=== PATIENT | male | born 1965 | race African-American/Black ===

== ENCOUNTER 2018-09-02 11:33 | Outpatient (CLI) | payer BC ==
--- NOTE | 2018-09-02 13:19 | RAD ---
RADIOGRAPH RIGHT KNEE 4 VIEWS: 09/02/18 HISTORY: 52-year-old male with right knee pain. FINDINGS: Soft tissue edema anteriorly with possible joint effusion. No fracture or dislocation. Joint spaces a re maintained without erosions or significant osteophytes. No periostitis, permeative lesion, osteoly tic lesion, osteoblastic lesion, or fracture. IMPRESSION: 1. No osseous abnormality. 2. Anterior soft tissue edema. POS: C
== END 2018-09-02 11:34 | disposition home or self-care (01) ==
LOC: BURRAD 11:33
PROVIDERS: ATTEND Nurse Practitioner Family
DX: M25.561 Pain in right knee (principal); M1A.9XX0 Chronic gout, unspecified, without tophus (tophi); R60.0 Localized edema
CPT/HCPCS: 36415; 84550